=== PATIENT | male | born 1995 | race Caucasian/White ===

== ENCOUNTER 2021-03-05 17:58 | Inpatient (IN) ==
[2021-03-05 21:02] LABS: ABS Lymphocytes 1.4 10^3/ul (1.0-4.8); ABS Monocytes 0.6 10^3/ul (0-0.8); ABS Neutrophils 4.6 10^3/ul (1.5-7.7); Eosinophil % 0.1 %; Hematocrit 41 % (42-52); Hemoglobin 14.2 g/dL (14.0-18.0); Lymphocyte % 20.4 %; Mean Corpuscular HGB Conc 35 g/dL (31-36); Mean Corpuscular Hemoglobin 31 pg (27-31); Mean Corpuscular Volume 89 fL (80-94); Mean Platelet Volume 8.6 fL (7.4-10.4); Platelet Count 260 10^3/uL (150-450); Red Cell Distribution Width 13 % (10-15); White Blood Count 6.7 10^3/uL (3.5-10.8)
[2021-03-05 21:19] LABS: ALT 15 U/L (7-52); AST 17 U/L (13-39); Albumin 4.7 g/dL (3.2-5.2); Albumin/Globulin Ratio 1.7 (1-3); Alkaline Phosphatase 44 U/L (35-149); Anion Gap 9 mmol/L (2-11); Blood Urea Nitrogen 9 mg/dL (6-24); CO2 Carbon Dioxide 25 mmol/L (22-32); Calcium 9.7 mg/dL (8.6-10.3); Chloride 103 mmol/L (101-111); Globulin 2.7 g/dL (2-4); Glucose 86 mg/dL (70-100); Potassium 3.8 mmol/L (3.5-5.0); Sodium 137 mmol/L (135-145); Total Protein 7.4 g/dL (6.4-8.9)
[2021-03-05 21:24] LABS: Acetaminophen < 15 mcg/mL; Alcohol, S < 13 mg/dL (<13); Salicylate < 2.50 mg/dL (<30)
[2021-03-05] MEDS ORDERED: Nicotine GUM 4MG FRUIT FLAVOR PO ONE (21:48)
[2021-03-05 21:52] LABS: Urine Appearance Clear; Urine Bilirubin Negative (Negative); Urine Blood Negative (Negative); Urine Color Yellow; Urine Glucose Negative (Negative); Urine Ketones 1+ (Negative); Urine Nitrite Negative (Negative); Urine Protein Negative (Negative); Urine Specific Gravity 1.008 (1.002-1.030); Urine Urobilinogen Negative (Negative)
[2021-03-05 22:11] LABS: Urine Benzodiazepine Screen None Detected (None Detect); Urine Cannabinoids Screen Presumptive Positive (None Detect); Urine Opiates Screen None Detected (None Detect)
[2021-03-06 01:36] LABS: Rapid COVID-19 Molecular Undetected (Undetected)
[2021-03-06] MEDS ORDERED: Al Hydrox/Mg Hydrox/Simet LIQ 30 ML UDC PO PRN (03:43)
[2021-03-06] MEDS: Nicotine GUM 2MG FRUIT FLAVOR PO PRN ×4 (04:08→18:59)
[2021-03-06 08:16] LABS: HDL Cholesterol 52.3 mg/dL
[2021-03-06] MEDS: Nicotine PATCH 21 MG/24 HR PATCH TRANSDERM SCH (08:32)
[2021-03-06] MEDS: Vitamin THERAPEUTIC TAB PO SCH (08:33)
[2021-03-07] MEDS: Vitamin THERAPEUTIC TAB PO SCH (08:45)
[2021-03-07] MEDS: Nicotine GUM 2MG FRUIT FLAVOR PO PRN ×3 (08:45→20:10)
[2021-03-07] MEDS: Nicotine PATCH 21 MG/24 HR PATCH TRANSDERM SCH (08:46)
[2021-03-08] MEDS: Nicotine PATCH 21 MG/24 HR PATCH TRANSDERM SCH (08:23)
[2021-03-08] MEDS: Nicotine GUM 2MG FRUIT FLAVOR PO PRN ×3 (08:23→20:03)
[2021-03-08] MEDS: Vitamin THERAPEUTIC TAB PO SCH (08:23)
[2021-03-09] MEDS: Nicotine GUM 2MG FRUIT FLAVOR PO PRN ×2 (09:03→19:47)
[2021-03-09] MEDS: Vitamin THERAPEUTIC TAB PO SCH (09:03)
[2021-03-09] MEDS: Nicotine PATCH 21 MG/24 HR PATCH TRANSDERM SCH (09:04)
[2021-03-10] MEDS: Vitamin THERAPEUTIC TAB PO SCH (07:37)
[2021-03-10] MEDS: Nicotine PATCH 21 MG/24 HR PATCH TRANSDERM SCH (07:37)
[2021-03-10 08:38] VITALS: BP 130/84
== END 2021-03-10 12:30 | disposition home or self-care (01) | DRG 885 ==
LOC: ED 17:58 → BSU 23:28
PROVIDERS: ADMIT Psychiatry & Neurology Psychiatry; ATTEND Psychiatry & Neurology Psychiatry